=== PATIENT | female | born 1995 ===

== ENCOUNTER 2017-10-02 09:33 | Emergency (ER) | payer MEDICAID ==
--- NOTE | 2017-10-02 09:37 | ER Report ---
History and Physical Time Seen By MD: 09:36 HPI/ROS CHIEF COMPLAINT: "SVT episode" HISTORY OF PRESENT ILLNESS: Patient is a 22-year-old female who is visiting from [place] has a past medical history of supraventricular tachycardia. Patient has been treated with adenosine before but states "this doesn't work". She normally breaks with IV diltiazem. Patient denies any chest pain or pressure but does feel somewhat lightheaded. She does admit to drinking caffeine but denies any nicotine or tobacco products. Dulce. REVIEW OF SYSTEMS: Constitutional: No fever, no chills. Eyes: No discharge. ENT: No sore throat. Cardiovascular: Palpitations and tachycardia, no chest pain Respiratory: No cough, no shortness of breath. Gastrointestinal: No abdominal pain, no vomiting. Genitourinary: No hematuria. Musculoskeletal: No back pain. Skin: No rashes. Neurological: No headache. Allergies: Coded Allergies: No Known Drug Allergies (Unverified , 10/02/17) Home Meds Reported Medications Metoprolol Succinate (METOPROLOL SUCCINATE) 25 Mg Tab.er.24h, 1 TAB PO QDAY, TAB 10/02/17 Metoprolol Tartrate (METOPROLOL TARTRATE) 25 Mg Tablet, 12.5 MG PO BID, TAB 10/02/17 Past Medical/Surgical History History of SVT currently on metoprolol Constitutional Vital Sign - Last 24 Hours 10/02/17 10/02/17 10/02/17 10/02/17 09:39 09:43 09:48 09:50 Pulse 171 140 Resp 16 21 B/P (MAP) 125/83 (97) 113/76 (88) Pulse Ox 100 98 10/02/17 10/02/17 10/02/17 10/02/17 09:53 09:58 10:00 10:03 Pulse 90 92 93 Resp 20 15 13 B/P (MAP) 112/75 (87) Pulse Ox 94 96 96 10/02/17 10/02/17 10/02/17 10/02/17 10:08 10:10 10:15 10:20 Pulse 98 85 86 Resp 17 12 13 B/P (MAP) 105/73 (84) 102/75 (84) Pulse Ox 93 97 98 5/21/18 5/21/18 5/21/18 5/21/18 10:25 10:30 10:35 10:39 Pulse 83 89 85 90 Resp 16 8 B/P (MAP) 107/72 (84) Pulse Ox 97 99 10/02/17 10/02/17 10:44 10:49 Pulse 83 96 Resp 18 17 Pulse Ox 98 99 Intake and Output 10/02/17 10/02/17 10/03/17 15:00 23:00 07:00 Intake Total 850 ml Balance 850 ml Physical Exam General/Constitutional: Patient is awake, alert, nontoxic and in no acute respiratory distress. Head: Normocephalic and atraumatic. Eyes: Conjunctival clear, Neck: Supple, Cardiovascular: Heart is tachycardic and regular. Pulmonary: Lungs are clear to auscultation bilaterally. There are no wheezes, rales, or rhonchi. Chest rise is symmetrical Abdomen: Soft, nontender, no guarding or peritoneal signs. Extremities: No gross deformities, No peripheral cyanosis. Able to move all 4 extremities. Neuro: Alert and oriented X3, Skin: No rashes, skin is warm dry and well perfused. Medical Decision Making Data Points Result Diagram: 10/02/17 0946 10/02/17 0946 Laboratory Hematology Test 10/02/17 09:46 Red Blood Count 5.15 M/uL (4.17-5.56) Mean Corpuscular Volume 72.4 fL (80.0-96.0) Mean Corpuscular Hemoglobin 23.7 pg (26.0-33.0) Mean Corpuscular Hemoglobin Concent 32.8 g/dL (32.0-36.0) Red Cell Distribution Width 16.8 % (11.5-14.5) Mean Platelet Volume 9.4 fL (7.2-11.1) Neutrophils (%) (Auto) 70.4 % (39.4-72.5) Lymphocytes (%) (Auto) 21.1 % (17.6-49.6) Monocytes (%) (Auto) 7.5 % (4.1-12.4) Eosinophils (%) (Auto) 0.3 % (0.4-6.7) Basophils (%) (Auto) 0.7 % (0.3-1.4) Nucleated RBC Relative Count (auto) 0.0 /100WBC Neutrophils # (Auto) 5.8 K/uL (2.0-7.4) Lymphocytes # (Auto) 1.7 K/uL (1.3-3.6) Monocytes # (Auto) 0.6 K/uL (0.3-1.0) Eosinophils # (Auto) 0.0 K/uL (0.0-0.5) Basophils # (Auto) 0.1 K/uL (0.0-0.1) Nucleated RBC Absolute Count (auto) 0.00 K/uL Sodium Level 139 mmol/L (137-145) Potassium Level 3.3 mmol/L (3.5-5.0) Chloride Level 102 mmol/L (98-107) Carbon Dioxide Level 23 mmol/L (22-31) Blood Urea Nitrogen 13 mg/dl (7-18) Creatinine 0.80 mg/dl (0.52-1.04) Glomerular Filtration Rate Calc > 60.0 Random Glucose 110 mg/dl (75-110) Calcium Level 9.3 mg/dl (8.4-10.2) Human Chorionic Gonadotropin, Qual Negative (NEGATIVE) Chemistry Test 10/02/17 09:46 White Blood Count 8.3 k/uL (4.5-11.0) Red Blood Count 5.15 M/uL (4.17-5.56) Hemoglobin 12.2 g/dL (12.0-16.0) Hematocrit 37.3 % (34.0-47.0) Mean Corpuscular Volume 72.4 fL (80.0-96.0) Mean Corpuscular Hemoglobin 23.7 pg (26.0-33.0) Mean Corpuscular Hemoglobin Concent 32.8 g/dL (32.0-36.0) Red Cell Distribution Width 16.8 % (11.5-14.5) Platelet Count 267 K/uL (150-450) Mean Platelet Volume 9.4 fL (7.2-11.1) Neutrophils (%) (Auto) 70.4 % (39.4-72.5) Lymphocytes (%) (Auto) 21.1 % (17.6-49.6) Monocytes (%) (Auto) 7.5 % (4.1-12.4) Eosinophils (%) (Auto) 0.3 % (0.4-6.7) Basophils (%) (Auto) 0.7 % (0.3-1.4) Nucleated RBC Relative Count (auto) 0.0 /100WBC Neutrophils # (Auto) 5.8 K/uL (2.0-7.4) Lymphocytes # (Auto) 1.7 K/uL (1.3-3.6) Monocytes # (Auto) 0.6 K/uL (0.3-1.0) Eosinophils # (Auto) 0.0 K/uL (0.0-0.5) Basophils # (Auto) 0.1 K/uL (0.0-0.1) Nucleated RBC Absolute Count (auto) 0.00 K/uL Glomerular Filtration Rate Calc > 60.0 Calcium Level 9.3 mg/dl (8.4-10.2) Human Chorionic Gonadotropin, Qual Negative (NEGATIVE) EKG/Imaging EKG Interpretation EKG shows supraventricular tachycardia with rate of 170 bpm. Repeat EKG shows sinus rhythm with first-degree AV block with a ventricular rate of 87 bpm. Monitor Interpretation: Supraventricular Tach ED Course/Re-evaluation Clinical Indication for ER IV: Hydration, IV Access ED Course 10/02/2017 9:46:14 am diagnosis of SVT confirmed by EKG. Patient was offered trial of breaking SVT with adenosine but she refused. Patient is hemodynamically stable and competent at this time. We'll go with 2nd line which will be a bolus of IV diltiazem 20 mg followed by a drip at 5 mg per hour. Re-evaluation 10/02/2017 9:51:07 am patient given 20 mg of IV diltiazem and had spontaneous conversion back to sinus rhythm with a ventricular rate of approximately 110 bpm on the monitor. Patient feeling better at this time. We'll repeat EKG and observe in the emergency department. We will hold on the diltiazem drip at this time. Decision to Disposition Date: October 02, 2017 Decision to Disposition Time: 10:43 Depart Departure Latest Vital Signs Vital Signs Date Time Temp Pulse Resp B/P (MAP) Pulse Ox O2 Delivery O2 Flow Rate FiO2 10/02/17 10:49 96 17 99 10/02/17 10:30 107/72 (84) Impression: Primary Impression: Supraventricular dysrhythmia Additional Impression: Hypokalemia Condition: Improved Patient Instructions: Hypokalemia (ED), Supraventricular Tachycardia (DC) Problem Qualifiers ALY MOORE MD October 02, 2017 09:37
[2017-10-02] MEDS ORDERED: NS(*) 0.9% 1000 ML BAG 1,000 ML IV ONE (09:42)
[2017-10-02] MEDS ORDERED: METO25TA93 PO (09:43)
[2017-10-02] MEDS ORDERED: METO25TA23 PO (09:43)
[2017-10-02] MEDS ORDERED: DILTIAZEM HCL* 100 MG ADDVIAL 100 MG in NS(*) 0.9% 100 ML ADDVANT BAG 100 ML IV SCH (09:45)
[2017-10-02] MEDS ORDERED: DILTIAZEM 5 MG/ML 5ML IVPUSH IVP ONE (09:45)
--- NOTE | 2017-10-02 09:48 | EKG ---
FACILITY: [facility] PATIENT NAME: RYAN KERN : [id number] MR: [id number] V: [id number] EXAM DATE: ORDERING PHYSICIAN: ALY MOORE TECHNOLOGIST: MIGUELINA Ch Reason : TACHY Blood Pressure : / mmHG Vent. Rate : 171 BPM Atrial Rate : 187 BPM P-R Int : 000 ms QRS Dur : 106 ms QT Int : 272 ms P-R-T Axes : 000 082 052 degrees QTc Int : 458 ms Supraventricular tachycardia Nonspecific ST abnormality Abnormal ECG No previous ECGs available Confirmed by RONI FLEMING ([id number]) on 10/02/2017 12:19:39 PM Referred By: TERESA Confirmed By:RONI FLEMING
[2017-10-02 09:56] LABS: PLATELET COUNT, AUTOMATED 267 K/uL (150-450)
[2017-10-02] MEDS ORDERED: POTASSIUM CHL 20 MEQ TABCR PO SCH (10:10)
[2017-10-02 10:30] VITALS: BP 107/72
--- NOTE | 2017-10-02 10:37 | EKG ---
FACILITY: [facility] PATIENT NAME: RYAN KERN : [id number] MR: [id number] V: [id number] EXAM DATE: ORDERING PHYSICIAN: ALY MOORE TECHNOLOGIST: MIGUELINA Ch Reason : CONVERSION Blood Pressure : / mmHG Vent. Rate : 087 BPM Atrial Rate : 087 BPM P-R Int : 216 ms QRS Dur : 092 ms QT Int : 398 ms P-R-T Axes : 073 077 056 degrees QTc Int : 478 ms Sinus rhythm with 1st degree AV block No acute appearing findings Artifact in several leads - repeat if needed Confirmed by RONI FLEMING ([id number]) on 10/02/2017 12:20:45 PM Referred By: TERESA Confirmed By:RONI FLEMING
== END 2017-10-02 11:00 | disposition home or self-care (01) ==
LOC: ER 09:38
DX: I47.1 Supraventricular tachycardia (principal); E87.6 Hypokalemia
CPT/HCPCS: 84703; 85025; 93005; 96361; 96374; 99284; J3490; J7030; 82310; 82374; 82435; 82565; 82947; 84132; 84295; 84520